=== PATIENT | male | born 1975 | race African-American/Black ===

== ENCOUNTER 2018-10-16 07:48 | Observation (INO) | payer OTHER ==
[~2018-10-16 07:48] MED LIST: CEFAZOLIN 2 GM/50 ML (PMX) 50 ML IVPB
[2018-10-16] MEDS: SOD CHLORIDE 0.9% 1,000 ML IV (08:59)
[2018-10-16 09:07] LABS: ADD MAN DIFF? NO
[2018-10-16 09:11] LABS: BASOPHILS % 0.8 % (0.0-2.0); EOSINOPHILS # 0.3 10^3/ul (0.0-0.5); EOSINOPHILS % 4.8 % (0.0-7.0); HEMOGLOBIN 12.2 g/dl (14.0-18.0); LYMPHOCYTES # 1.3 10^3/ul (0.8-2.9); LYMPHOCYTES % 24.8 % (15.0-51.0); MEAN CORPUSCULAR HEMOGLOBIN 27.7 pg (29.0-33.0); MEAN CORPUSCULAR HGB CONC 31.3 g/dl (32.0-37.0); MEAN CORPUSCULAR VOLUME 88.6 fl (82.0-101.0); MEAN PLATELET VOLUME 9.5 fl (7.4-10.4); MONOCYTE # 0.4 10^3/ul (0.3-0.9); MONOCYTES % 6.9 % (0.0-11.0); NEUTROPHIL # 3.3 10^3/ul (1.6-7.5); NEUTROPHILS % 62.5 % (39.0-77.0); PLATELET COUNT 257 10^3/UL (140-415); RED CELL DISTRIBUTION WIDTH 12.8 % (11.5-14.5)
[2018-10-16 09:11] LABS: WHITE BLOOD COUNT 5.3 10^3/ul (4.8-10.8)
[2018-10-16 09:13] LABS: INR 1.02; PROTIME 13.5 Sec (11.9-14.9); PT RATIO 1.1
[2018-10-16 09:18] LABS: PARTIAL THROMBOPLASTIN TIME 35.3 Sec (23.0-35.0)
[2018-10-16 09:21] LABS: ALANINE AMINOTRANSFERASE 39 IU/L (13-69); ALBUMIN 3.9 g/dl (3.3-4.9); ALBUMIN/GLOBULIN RATIO 1.14; ALKALINE PHOSPHATASE 44 IU/L (42-121); ANION GAP 6 (5-13); ASPARTATE AMINO TRANSFERASE 33 IU/L (15-46); BILIRUBIN,INDIRECT 1.1 mg/dl (0-1.1); BILIRUBIN,TOTAL 1.1 mg/dl (0.2-1.3); BLOOD UREA NITROGEN 13 mg/dl (7-20); CALCIUM 9.2 mg/dl (8.4-10.2); CARBON DIOXIDE 29 mmol/L (21-31); CHLORIDE 106 mmol/L (97-110); Estimated GFR > 60 mL/min (>60); GLUCOSE 89 mg/dl (70-220); POTASSIUM 3.8 mmol/L (3.5-5.1); SODIUM 141 mmol/L (135-144); TOTAL PROTEIN 7.3 g/dl (6.1-8.1)
[2018-10-16] MEDS ORDERED: DEXAMETHASONE 4 MG/ML 5 ML INJ (09:40)
[2018-10-16] MEDS ORDERED: SUGAMMADEX SODIUM 200 MG/2 ML VIAL IV ×2 (09:42→10:47)
[2018-10-16] MEDS ORDERED: PROPOFOL 20 ML (09:42)
[2018-10-16] MEDS ORDERED: LIDOCAINE 2% (SDV) 5 ML INJ (09:42)
[2018-10-16] MEDS ORDERED: MIDAZOLAM 1 MG/ML 2 ML INJ (09:42)
[2018-10-16] MEDS ORDERED: METOCLOPRAMIDE 10 MG INJ (09:42)
[2018-10-16] MEDS ORDERED: ONDANSETRON 4 MG INJ (09:42)
[2018-10-16] MEDS ORDERED: FENTAnyl 50 MCG/ML VIAL ×3 (09:42→12:13)
[2018-10-16] MEDS ORDERED: ROCURONIUM 50 MG INJ ×2 (09:42→12:11)
[2018-10-16] MEDS ORDERED: OXYCODONE/ACETAMINOPHEN (5/325) TAB PO (10:00)
[2018-10-16] MEDS ORDERED: HYDROmorphONE 1 MG/5 ML IV SYRINGE IV (10:00)
[2018-10-16] MEDS ORDERED: ONDANSETRON 4 MG INJ IV ×2 (10:00→13:30)
[2018-10-16] MEDS ORDERED: MEPERIDINE 25 MG INJ IV (10:00)
[2018-10-16] MEDS ORDERED: FENTAnyl 50 MCG/ML VIAL IV (10:00)
[2018-10-16] MEDS ORDERED: PROCHLORPERAZINE 10 MG INJ IV (10:00)
[2018-10-16] MEDS: LIDOCAINE 1%/EPI (1:100,000) (MDV) 20 ML INJ (10:20)
[2018-10-16] MEDS: BUPIVACAINE 0.5%/EPI (SDV) 30 ML INJ INJ (10:20)
[2018-10-16] MEDS ORDERED: CEFAZOLIN 1 GM INJ (10:31)
[2018-10-16] MEDS ORDERED: SUCCINYLCHOLINE CHLORIDE 100 MG/5 ML SYG IV (10:31)
[2018-10-16] MEDS ORDERED: LIDOCAINE 1%/EPI 30 ML INJ ×2 (10:33→10:34)
[2018-10-16] MEDS ORDERED: BUPIVACAINE 0.25% (MPF) 30 ML INJ (10:34)
[2018-10-16] MEDS ORDERED: GENTAMICIN 80 MG INJ (10:34)
[2018-10-16] MEDS ORDERED: HYDROGEN PEROXIDE 118 ML (10:42)
[2018-10-16] MEDS ORDERED: morphine 2 MG INJ IV (13:30)
[2018-10-16] MEDS ORDERED: HYDROCODONE/APAP (5/325) TAB PO (13:30)
[2018-10-16] MEDS: LACTATED RINGER'S 1,000 ML IV ×2 (15:55→21:01)
[2018-10-16] MEDS: HYDROCODONE/APAP (5/325) TAB PO (16:17)
[2018-10-16] MEDS: CIPROFLOXACIN 500 MG TAB PO (17:54)
[2018-10-16] MEDS ORDERED: CEFAZOLIN 1 GM/50 ML (PMX) 50 ML IVPB (18:00)
[2018-10-16] MEDS: metroNIDAZOLE 500 MG TAB PO (21:01)
[2018-10-17] MEDS: CIPROFLOXACIN 500 MG TAB PO (05:53)
[2018-10-17] MEDS: metroNIDAZOLE 500 MG TAB PO ×2 (05:53→13:43)
[2018-10-17 06:07] LABS: ADD MAN DIFF? NO
[2018-10-17 06:17] LABS: BASOPHILS % 0.2 % (0.0-2.0); EOSINOPHILS # 0.1 10^3/ul (0.0-0.5); EOSINOPHILS % 0.7 % (0.0-7.0); HEMATOCRIT 39.6 % (42.0-52.0); HEMOGLOBIN 12.5 g/dl (14.0-18.0); LYMPHOCYTES # 1.5 10^3/ul (0.8-2.9); LYMPHOCYTES % 16.3 % (15.0-51.0); MEAN CORPUSCULAR HEMOGLOBIN 27.1 pg (29.0-33.0); MEAN CORPUSCULAR HGB CONC 31.6 g/dl (32.0-37.0); MEAN CORPUSCULAR VOLUME 85.9 fl (82.0-101.0); MEAN PLATELET VOLUME 9.5 fl (7.4-10.4); MONOCYTE # 0.7 10^3/ul (0.3-0.9); MONOCYTES % 7.9 % (0.0-11.0); NEUTROPHIL # 6.7 10^3/ul (1.6-7.5); NEUTROPHILS % 74.6 % (39.0-77.0); PLATELET COUNT 276 10^3/UL (140-415); RED BLOOD COUNT 4.61 10^6/ul (4.70-6.10); RED CELL DISTRIBUTION WIDTH 12.7 % (11.5-14.5)
[2018-10-17] MEDS: LACTATED RINGER'S 1,000 ML IV (13:11)
== END 2018-10-17 15:05 | disposition home or self-care (01) ==
LOC: SDS 07:48 → REC 13:28 → PP2 15:32
DX: K60.3 Anal fistula (principal)
CPT/HCPCS: 46275; 80053; 85025; 85610; 85730; 88304; 99217; G0378